=== PATIENT | female | born 1950 | race Caucasian/White ===

== ENCOUNTER 2023-04-09 14:19 | Outpatient (CLI) | payer MEDICARE, BC | END 2023-04-09 14:20 | disposition home or self-care (01) | LOC: CSHMRI 14:19 | PROVIDERS: ATTEND Psychiatry & Neurology Clinical Neurophysiology | DX: N39.42 Incontinence without sensory awareness (principal); R15.9 Full incontinence of feces; G95.9 Disease of spinal cord, unspecified; M54.50 Low back pain, unspecified; M47.814 Spondylosis without myelopathy or radiculopathy, thoracic region; M47.16 Other spondylosis with myelopathy, lumbar region | CPT/HCPCS: 72146; 72148 ==